=== PATIENT | female | born 1930 | race Caucasian/White ===

== ENCOUNTER 2018-10-31 17:37 | Emergency (ER) | payer OTHER ==
[~2018-10-31] VITALS: Ht 154.9 cm; Wt 68.0 kg
[~2018-10-31 17:37] MED LIST: APAP650 PO; ASPIRIN325 PO; ASPIRIN81 M2 PO; CHOLESTYRAMINE P4 GM PO; CIPRO500 MG PO; DOXYCYCLINE 10100 MG PO; LISINOPRIL10 MG PO; LOPRESSOR 50 MG50 M1 PO; LOPRESSOR25 PO; MYLANTA 12 OZ355 M1 PO; NITROGLYCERIN0.4 MG SL; PAXIL10 MG PO; PEPCID AC20 M1 PO; PLAVIX 75 MG TA75 M1 PO; SIMVASTATIN40 MG PO; VYTORIN 10-401 EACH PO; ZIAC 10-6.25 M1 EACH PO
[2018-10-31 18:24] LABS: ABSOLUTE NEUTROPHILS 5.2 thou/uL (1.4-8.2); BASOPHILS 0.6 % (0.0-2.0); EOSINOPHILS 8.7 % (0.0-3.0); HEMOGLOBIN 14.5 gm/dL (12.0-15.0); LYMPHOCYTES 22.8 % (24.0-44.0); MCH 32.5 pg (26.0-34.0); MCHC 34.4 g/dL (28.0-37.0); MCV 94.5 fL (80.0-100.0); MONOCYTES 10.4 % (1.0-8.0); PLATELET COUNT 254 thou/uL (150-400); POLYS 57.5 % (36.0-66.0); RBC 4.45 mil/uL (4.20-5.00); RDW 12.8 % (10.5-14.5); WBC 9.1 thou/uL (4.0-11.0)
[2018-10-31 18:31] LABS: ANION GAP 13 mmol/L (7-16); BUN 16 mg/dL (7-18); CALCIUM 9.3 mg/dL (8.5-10.1); CHLORIDE 104 mmol/L (98-107); CO2 23 mmol/L (21-32); CREATININE 0.9 mg/dL (0.6-1.0); GLUCOSE 95 mg/dL (74-106); POTASSIUM 4.1 mmol/L (3.5-5.1); SODIUM 140 mmol/L (136-145)
[2018-10-31 18:40] LABS: TROPONIN-I <0.06 ng/mL (<0.06)
[2018-10-31] MEDS ORDERED: ESCITALOPRAM OX10 MG PO (18:41)
[2018-10-31] MEDS ORDERED: ASPIR 8181 MG PO (18:43)
[2018-10-31] MEDS ORDERED: RESTORIL15 MG PO (18:45)
[2018-10-31 20:18] VITALS: BP 113/78
[2018-10-31] MEDS ORDERED: ALEVE220 MG PO (20:23)
--- NOTE | 2018-11-01 08:13 | EKG ---
[place] [address] [employer] [address] ELECTROCARDIOGRAM REPORT Name: HYU AVENDANO Room #: DEP STEPH Ivory#: [id number] Admission: 10/31/18 Attend Phys: Discharge: 10/31/18 Date of : [birth year] Report #: [id number] THIS REPORT FOR: //name// [facility] ED Test Date: 2018-10-31 Test Time: 17:53:34 Pat Name: HUY AVENDANO Department: Room: Gender: F Floor Space Allocator: MIGEL : 1930 Requested By: Jacky Luna Order Number: [id number] MD: Michael Biswas Measurements Intervals [place] Rate: 62 P: -24 AR: 99 QRS: -28 QRSD: 92 T: 34 QT: 439 QTc: 446 Interpretive Statements Sinus rhythm Short AR interval Borderline left axis deviation Compared to ECG 11/27/2015 11:18:49 Short AR interval now present Electronically Signed On 11-01-2018 8:13:01 FRAME CHANGER by Michael Biswas [email or web address] <ELECTRONICALLY SIGNED> By: Michael Biswas MD, [facility] 11/01/18 0813 1753 1753 Michael Biswas MD, FACC /EPI
== END 2018-10-31 20:53 | disposition home or self-care (01) ==
LOC: ER 17:37
PROVIDERS: Emergency Medicine
DX: R07.89 Other chest pain (principal); R42 Dizziness and giddiness; I10 Essential (primary) hypertension; Z88.0 Allergy status to penicillin; Z88.8 Allergy status to other drugs, medicaments and biological substances; Z91.018 Allergy to other foods; Z90.49 Acquired absence of other specified parts of digestive tract; Z90.710 Acquired absence of both cervix and uterus; Z98.890 Other specified postprocedural states; Z90.89 Acquired absence of other organs; Z95.0 Presence of cardiac pacemaker